=== PATIENT | male | born 1965 | race Caucasian/White ===

== ENCOUNTER 2021-07-31 18:40 | Observation (INO) ==
[2021-07-31] MEDS ORDERED: SODIUM CHLORIDE 0.9% 1000ML 1,000 ML IV ONE (19:00)
[2021-07-31 19:30] LABS: Basophils # (auto) 0.05 K/uL (0-0.2); Basophils % (auto) 0.5 %; Eosinophils # (auto) 0.29 K/uL (0-0.5); Eosinophils % (auto) 2.8 %; Hematocrit (blood only) 43.2 % (42-52); Hemoglobin 14.8 g/dL (14.0-18.0); Immature Granulocytes # (auto) 0.01 K/uL (0.00-0.02); Immature Granulocytes % (auto) 0.1 %; Lymphocytes # (auto) 2.08 K/uL (1.2-3.4); Lymphocytes % (auto) 20.2 %; Mean Corpuscular Hemoglobin 29.3 pg (25-34); Mean Corpuscular Hgb Conc 34.3 g/dL (32-36); Mean Corpuscular Volume 85.5 fL (80-100); Mean Platelet Volume 9.9 fL (7.4-10.4); Monocytes # (auto) 0.68 K/uL (0.11-0.59); Monocytes % (auto) 6.6 %; Neutrophils % (auto) 69.8 %; Platelet Count 273 K/uL (130-400); RDW Coefficient of Variation 13.4 % (11.5-14.5); RDW Standard Deviation 42.1 fL (36.4-46.3); Red Blood Count 5.05 M/uL (4.7-6.1); White Blood Count 10.31 K/uL (4.8-10.8)
[2021-07-31 19:37] LABS: iSTAT Creatinine 0.8 mg/dl (0.6-1.3); iSTAT Hemoglobin 14.3 g/dl (14.0-18.0); iSTAT Ionized Calcium 1.19 mmol/l (1.12-1.32); iSTAT Potassium 3.7 mmol/L (3.3-5.0)
[2021-07-31 19:55] LABS: Alanine Aminotransferase 9 U/L (7-52); Albumin Level 4.3 gm/dl (3.4-5.0); Alkaline Phosphatase 78 U/L (34-104); Anion Gap 9 (3-11); Aspartate Aminotransferase 11 U/L (13-39); BUN Creatinine Ratio 13.3 (10-20); Bilirubin,Total 0.3 mg/dl (0.2-1.0); Blood Urea Nitrogen 11 mg/dl (6-23); Carbon Dioxide 26 mmol/L (21-32); Chloride 105 mmol/L (98-107); Creatinine Clr Calc Pharmacy 103.8 ml/min; Est GFR (African American) 114.8 ml/min; Est GFR (Non-African American) 99.1 ml/min; Globulin 2.2 gm/dl (2.5-4.0); Glucose 151 mg/dl (70-99(Fasting)); Lipase 66 U/L (11-82); Potassium 3.7 mmol/L (3.5-5.1); Sodium 140 mmol/L (136-145); Total Protein 6.5 gm/dl (6.0-8.3); Troponin I < 0.03 ng/ml (0-0.04)
--- NOTE | 2021-07-31 20:22 | Emergency Department Note ---
Impression & Plan Vasculitis, Acute foot pain, Hyperglycemia, Foot pain ED Provider Note NAME: DARSHAN DU AGE: 56 SEX: M : 1965 ARRIVES VIA: Walk-In INFORMANT: Patient ED PROVIDER(S): Francis Smith DO CHIEF COMPLAINT: leg pain HPI: Patient is a 56-year-old male who presents to the ER for toe pain as well as discoloration. This has been going on since May. Patient initially notes that he had a wound on his left third toe back in mid May. This has progressively gotten worse. Now he notes he is having the same thing on his left first toe as well as his right second toe. He notes initially starts out as purpleish discoloration and will becomes black and slightly necrotic. He denies any headache or change in vision. No chest pain or shortness of breath. No nausea, vomiting or diarrhea. No dysuria, urgency, or frequency. No other exacerbating or remitting factors. No IV drug use. ROS: See above HPI for pertinent positives & negatives. A total of 10 systems reviewed and were otherwise negative. PAST MEDICAL HISTORY:See Below PAST SURGICAL HISTORY:See Below FAMILY HISTORY:See Below SOCIAL HISTORY:See Below HOME MEDICATIONS:See Below ALLERGIES:See Below VITALS:See Below PHYSICAL EXAMINATION: GENERAL: Sitting up in bed, alert, well appearing, well nourished, no distress, non-toxic EYE EXAM: normal conjunctiva. PERRL and EOM's grossly intact. OROPHARYNX: no exudate, no erythema, lips, buccal mucosa, and tongue normal and mucous membranes are moist NECK: supple, no nuchal rigidity, no adenopathy, non-tender LUNGS: Clear to auscultation. Normal chest wall mechanics HEART: no murmurs, S1 normal and S2 normal ABDOMEN: abdomen soft, non-tender, normo-active bowel sounds, no masses, no rebound or guarding. UPPER EXTREMITIES: upper extremities are grossly normal. LOWER EXTREMITIES: Left third digit with discoloration on the tip of the toe which appears to be necrotic in combination with the left first digit with dark discoloration on the medial aspect of the toe. Right second digit with dark purple discoloration of the distal aspect of the toe. DPs are 2 out of 4. Gross sensation is intact. NEURO EXAM: Normal sensorium, cranial nerves II-XII grossly intact, normal speech, no gross weakness of arms, no gross weakness of legs. MEDICAL DECISION MAKING: Patient is a 56-year-old male who presents the ER for dark discoloration of his bilateral toes. IV was established blood work was obtained. Labs show no significant leukocytosis or anemia. BMP along with LFTs bilirubin and lipase were remarkable for slightly elevated glucose. Lipase normal. Covid was negative. CT angio of the abdomen pelvis with runoff of the bilateral legs was negative. On exam he has what appears to be skin breakdown and questionable necrosis of 3 separate digits is bilaterally. He does not have any risk factors for embolic disease however this was considered in I did perform the angio for this reason. Question if this is a small vessel vasculitis. Does not appear to be consistent with trauma. Patient was updated bedside. Discussed with Dr. Meeks for further evaluation. Triage Nursing notes reviewed. Limited review of prior medical records performed Vital Signs: reviewed and remarkable for HTN and tachy Differential diagnosis: DVT, musculoskeletal, infection, joint effusion, trauma, lymphedema, idiopathic, CHF, as well as other pathologies. ER treatment provided: See below Diagnostics interpreted by me: ECG: none Cardiac Monitoring: An order was placed for continuous cardiac monitoring. The monitor shows a rate of 92 with sinus rhythm. Laboratory studies: As stated above and show below. Imaging studies: CT angio abdomen pelvis with runoff as described above Consultation(s): This with Dr. Meeks for further evaluation Procedures: none Critical Care: None Past Med/Surg History Social History Smoking Status: Never smoker Second Hand Exposure: No; Do You Dip or Chew Tobacco: Yes; Tobacco Cessation Education Requested by Patient: No Hx Alcohol Use: No Hx Substance Use: Yes Last Used Substance: Unknown Preferred Language: French Communication Ability: Effective Chain Offbearer Required: No Beliefs That Will Affect Care: None Current Living Situation: Spouse Other Information That Helps Us Care for You: No Feels Safe at Home: Yes Safety Concerns: Feels Safe At This Time Assistive Devices: None Allergies Allergies Allergy/AdvReac Type Severity Reaction Status Date / Time No Known Allergies Allergy Verified 07/31/21 19:16 Home Meds Home Medications Medication Instructions Recorded Confirmed atorvastatin 40 mg tablet 40 mg PO HS 07/31/21 07/31/21 celecoxib 200 mg capsule 200 mg PO DAILY 07/31/21 07/31/21 Results & Data (ED) Vital Signs Vital Signs - 24 hr 07/31/21 18:42 07/31/21 19:30 07/31/21 21:43 Temperature 36.7 C Temperature Source Temporal Artery Scan Pulse Rate 97 H 100 H Pulse Rate [Right Finger] 101 H 82 Pulse Rhythm Regular Pulse Rhythm [Right Finger] Regular Pulse Strength [Right Finger] Normal Respiratory Rate 19 19 19 Respiratory Effort / Characteristics Non-Labored Spontaneous Respiratory Depth Normal Blood Pressure 154/93 H Blood Pressure [Right Arm] 144/100 H Blood Pressure Mean 113 Blood Pressure Mean [Right Arm] 114 Pulse Oximetry 99 98 98 Oxygen Delivery Method Room Air Room Air Room Air Sepsis Recent Fever Within 48 Hours No Sepsis New/Unexplained Change in Mental Status N/A Sepsis Action Taken by Nursing No Action Required Laboratory Data Result diagrams: 07/31/21 19:20 07/31/21 19:20 Lab Results 07/31/21 07/31/21 07/31/21 Range/Units 19:20 19:20 19:24 WBC 10.31 (4.8-10.8) K/uL RBC 5.05 (4.7-6.1) M/uL Hgb 14.8 (14.0-18.0) g/dL POC Hgb 14.3 (14.0-18.0) g/dl Hct 43.2 (42-52) % POC Hct 42 (42-52) % MCV 85.5 (80-100) fL MCH 29.3 (25-34) pg MCHC 34.3 (32-36) g/dL RDW Std Deviation 42.1 (36.4-46.3) fL RDW Coeff of Deniz 13.4 (11.5-14.5) % Plt Count 273 (130-400) K/uL MPV 9.9 (7.4-10.4) fL Immature Gran % (Auto) 0.1 % Neut % (Auto) 69.8 % Lymph % (Auto) 20.2 % Canadian % (Auto) 6.6 % Eos % (Auto) 2.8 % Baso % (Auto) 0.5 % Neut # (Auto) 7.20 H (1.4-6.5) K/uL Lymph # (Auto) 2.08 (1.2-3.4) K/uL Canadian # (Auto) 0.68 H (0.11-0.59) K/uL Eos # (Auto) 0.29 (0-0.5) K/uL Baso # (Auto) 0.05 (0-0.2) K/uL Immature Gran # (Auto) 0.01 (0.00-0.02) K/uL POC Sodium 142 (135-144) mmol/L Sodium 140 (136-145) mmol/L POC Potassium 3.7 (3.3-5.0) mmol/L Potassium 3.7 (3.5-5.1) mmol/L POC Chloride 103 (101-112) mmol/L Chloride 105 (98-107) mmol/L Carbon Dioxide 26 (21-32) mmol/L POC Total CO2 27 (24-31) mmol/L Anion Gap 9 (3-11) POC Anion Gap 17.0 (16-25) mmol/L POC BUN 11 (7-18) mg/dl BUN 11 (6-23) mg/dl Creatinine 0.83 (0.6-1.4) mg/dl POC Creatinine 0.8 (0.6-1.3) mg/dl Est Cr Clr Drug Dosing 103.8 ml/min Est GFR ( Amer) 114.8 ml/min Est GFR (Non-Af Amer) 99.1 ml/min BUN/Creatinine Ratio 13.3 (10-20) Glucose 151 H (70-99(Fasting)) mg/dl POC Glucose (other) 156 H (70-99) mg/dl Calcium 9.0 (8.5-10.1) mg/dl POC Ioniz Calcium Baldomero 1.19 (1.12-1.32) mmol/l Total Bilirubin 0.3 (0.2-1.0) mg/dl AST 11 L (13-39) U/L ALT 9 (7-52) U/L Alkaline Phosphatase 78 (34-104) U/L Troponin I < 0.03 (0-0.04) ng/ml Total Protein 6.5 (6.0-8.3) gm/dl Albumin 4.3 (3.4-5.0) gm/dl Globulin 2.2 L (2.5-4.0) gm/dl Albumin/Globulin Ratio 2.0 (0.9-2) Lipase 66 (11-82) U/L SARS-CoV-2, RNA, NAAT (NEGATIVE) 04/03/22 Range/Units 21:10 WBC (4.8-10.8) K/uL RBC (4.7-6.1) M/uL Hgb (14.0-18.0) g/dL POC Hgb (14.0-18.0) g/dl Hct (42-52) % POC Hct (42-52) % MCV (80-100) fL MCH (25-34) pg MCHC (32-36) g/dL RDW Std Deviation (36.4-46.3) fL RDW Coeff of Deniz (11.5-14.5) % Plt Count (130-400) K/uL MPV (7.4-10.4) fL Immature Gran % (Auto) % Neut % (Auto) % Lymph % (Auto) % Canadian % (Auto) % Eos % (Auto) % Baso % (Auto) % Neut # (Auto) (1.4-6.5) K/uL Lymph # (Auto) (1.2-3.4) K/uL Canadian # (Auto) (0.11-0.59) K/uL Eos # (Auto) (0-0.5) K/uL Baso # (Auto) (0-0.2) K/uL Immature Gran # (Auto) (0.00-0.02) K/uL POC Sodium (135-144) mmol/L Sodium (136-145) mmol/L POC Potassium (3.3-5.0) mmol/L Potassium (3.5-5.1) mmol/L POC Chloride (101-112) mmol/L Chloride (98-107) mmol/L Carbon Dioxide (21-32) mmol/L POC Total CO2 (24-31) mmol/L Anion Gap (3-11) POC Anion Gap (16-25) mmol/L POC BUN (7-18) mg/dl BUN (6-23) mg/dl Creatinine (0.6-1.4) mg/dl POC Creatinine (0.6-1.3) mg/dl Est Cr Clr Drug Dosing ml/min Est GFR ( Amer) ml/min Est GFR (Non-Af Amer) ml/min BUN/Creatinine Ratio (10-20) Glucose (70-99(Fasting)) mg/dl POC Glucose (other) (70-99) mg/dl Calcium (8.5-10.1) mg/dl POC Ioniz Calcium Baldomero (1.12-1.32) mmol/l Total Bilirubin (0.2-1.0) mg/dl AST (13-39) U/L ALT (7-52) U/L Alkaline Phosphatase (34-104) U/L Troponin I (0-0.04) ng/ml Total Protein (6.0-8.3) gm/dl Albumin (3.4-5.0) gm/dl Globulin (2.5-4.0) gm/dl Albumin/Globulin Ratio (0.9-2) Lipase (11-82) U/L SARS-CoV-2, RNA, NAAT NEGATIVE (NEGATIVE) Administered Medications Discontinued Medications Sodium Chloride (Nss 1000ml) 1,000 mls @ 999 mls/hr IV .Q1H1M ONE Stop: 07/31/21 20:00 Last Infusion: 07/31/21 21:14 Dose: 0 mls/hr Documented by: [id number] Admin: 07/31/21 19:32 Dose: 999 mls/hr Documented by: [id number] Ioversol (Optiray 320 125ml) 120 ml IV ONCE ONE Stop: 07/31/21 20:31 Last Admin: 07/31/21 20:30 Dose: 120 ml Documented by: [id number] Discharge Plan Visit Data Chief Complaint: Toe Injury/Pain Stated Complaint: COLD FEET, BOTH FEET TOES TURNING BLACK AND BLUE ED Provider: Francis Smith Discharge Problem: Vasculitis, Acute foot pain, Hyperglycemia, Foot pain Forms Stand Alone Forms: My [employer] Prescriptions Prescriptions: No Action celecoxib 200 mg capsule 200 mg PO DAILY RF: 0 atorvastatin 40 mg tablet 40 mg PO HS RF: 0 Referrals Referrals: Demond Loyola MD [Primary Care Provider] - Discharge Problem: Acute foot pain Qualifiers: Laterality: unspecified laterality Qualified Code(s): M79.673 - Pain in unspecified foot
[2021-07-31] MEDS ORDERED: OPTIRAY 320 125ml IV ONE (20:30)
[2021-07-31] MEDS ORDERED: POLYETHYLENE (MIRALAX) 17 GM PACK PO PRN (22:50)
[2021-07-31] MEDS ORDERED: ACETAMINOPHEN 325 MG TAB PO PRN (22:50)
[2021-07-31] MEDS: AMOXICILLIN/CLAVULANATE 875 MG TAB PO SCH (23:09)
[2021-07-31 23:30] LABS: Appearance Urine Clear (Clear); Bilirubin Urine Negative (Negative); Blood Urine Negative (Negative); Color Urine Yellow; Glucose Urine UA Negative (Negative); Ketones Urine Negative (Negative); Leukocyte Esterase Urine Negative (Negative); Nitrite Urine Negative (Negative); Protein Urine Negative (Negative); Specific Gravity Urine > 1.045 (1.000-1.030); Urobilinogen Urine Negative (Negative)
--- NOTE | 2021-07-31 23:58 | History and Physical Report ---
CHIEF COMPLAINT: Ulcers in toes. HISTORY OF PRESENT ILLNESS: A 56-year-old male with past medical history significant for hyperlipidemia, comes with ulcers in his toes. First he noticed some purplish discoloration and has some ulcers in his left distal part of 3rd toe and first toe. He thought he might have banged something and went to urgent care, given 10 days of antibiotics. It seemed to help a little bit and then again it progressively got worsened and getting worse, with black discoloration.Yesterday also again he has noticed purple discoloration of his right distal 2nd toe. Which prompted him to come to the ER today. He says, about 2 years ago, he was in [place] when he had severe vertigo, he went to doctor and was treated with some medication and it lasted for 3-4 months. It resolved, but once a while still feels a little bit dizzy. Since then he lost appetite and he lost about 30 pounds. Denies any other medical problems. Denies any headache. He has some blurred visions, no runny nose, no sore throat, no cough, no headache, no difficulty swallowing. No chest pain, no shortness of breath, no nausea, no vomiting, no abdominal pain. He has chronic diarrhea, goes 3-4 times a day, but denies any blood in the stools. Normal bladder movements. No blood in the urine. No swelling in the legs. Currently, resting comfortably and hemodynamically stable. ALLERGIES: No known drug allergies. PAST MEDICAL HISTORY: As mentioned above. PAST SURGICAL HISTORY: No surgical history on file. MEDICATIONS: The patient is on atorvastatin 40 mg p.o. at bedtime, celecoxib 200 mg p.o. daily. FAMILY HISTORY: Significant for father had COPD. SOCIAL HISTORY: . Former smoker. Alcohol occasionally. Medical marijuana as per the Epic. REVIEW OF SYMPTOMS: As per HPI. Rest of review of symptoms is negative. PHYSICAL EXAMINATION: GENERAL: The patient is of moderate build, not in acute distress. VITAL SIGNS: Temperature 36.7, pulse 82, respiratory rate 19, blood pressure 144/100, and oxygen 98% on room air. HEENT: Pupils equal, round and reactive to light. Oral mucosa moist. NECK: No JVD or neck masses. CARDIOVASCULAR: S1 and. S2 heard. Regular rate and rhythm. No murmur, no gallop. RESPIRATORY: Normal AP diameter. No accessory muscle use. No wheezing, no crackles. ABDOMEN: Soft, bowel sounds present, nontender, no distention. CENTRAL NERVOUS SYSTEM: Cranial nerves II-XII grossly intact, nonfocal. EXTREMITIES: Blackish discoloration of the distal left third toe and also on the left first toe. Purple discoloration on the distal part of the right second toe. No edema seen. LABORATORY DATA: WBC 10, hemoglobin 14.8, hematocrit 43.2, platelets 273. Sodium 140, potassium 3.7, chloride 105, CO2 of 26, BUN 11, creatinine 0.8, serum glucose 151, calcium 9. Total bilirubin 0.3, AST 11, ALT 9, alkaline phosphatase 70. Troponin I less than 0.03. Lipase 66. SARS-CoV-2 rapid test negative. IMAGING DATA: CTA abdomen and pelvis with lower extremity runoffs, preliminary report unremarkable, ASSESSMENT AND PLAN: 1. This 56-year-old male presents with bilateral lower toes ulcerations. On the left third and first toes, going onsince May, slightly getting worsened and purplish discoloration of the right second toe over the distal aspect started yesterday. CTA of abdomen and pelvis with contrast and lower extremity runoff seems to be okay. Questionable vasculitis, question of embolic phenomenon. We will keep him in the hospital. We will order echo.Possible underlying infection , we will put empirically on Augmentin. Will consult rheumatology in the a.m. Monitor in the hospital. 2. Hyperlipidemia, on statin. 3. Deep venous thrombosis prophylaxis: Lovenox. DISPOSITION: Observe in medical floor. PT/OT prior to discharge. Social service to help with discharge planning. Level 1 full code. Job ID: [id number] MTDD
[2021-08-01 05:52] LABS: Basophils # (auto) 0.06 K/uL (0-0.2); Basophils % (auto) 0.8 %; Eosinophils # (auto) 0.36 K/uL (0-0.5); Eosinophils % (auto) 4.7 %; Hematocrit (blood only) 42.7 % (42-52); Hemoglobin 14.4 g/dL (14.0-18.0); Immature Granulocytes # (auto) 0.01 K/uL (0.00-0.02); Immature Granulocytes % (auto) 0.1 %; Lymphocytes # (auto) 2.39 K/uL (1.2-3.4); Lymphocytes % (auto) 31.3 %; Mean Corpuscular Hemoglobin 29.2 pg (25-34); Mean Corpuscular Hgb Conc 33.7 g/dL (32-36); Mean Corpuscular Volume 86.6 fL (80-100); Monocytes # (auto) 0.64 K/uL (0.11-0.59); Monocytes % (auto) 8.4 %; Neutrophils # (auto) 4.18 K/uL (1.4-6.5); Neutrophils % (auto) 54.7 %; Platelet Count 263 K/uL (130-400); RDW Coefficient of Variation 13.5 % (11.5-14.5); RDW Standard Deviation 42.9 fL (36.4-46.3); Red Blood Count 4.93 M/uL (4.7-6.1); White Blood Count 7.64 K/uL (4.8-10.8)
[2021-08-01 06:20] LABS: Anion Gap 6 (3-11); BUN Creatinine Ratio 11.4 (10-20); Blood Urea Nitrogen 9 mg/dl (6-23); C Reactive Protein < 0.50 mg/dl (0-0.5); Calcium 8.7 mg/dl (8.5-10.1); Carbon Dioxide 28 mmol/L (21-32); Chloride 107 mmol/L (98-107); Creatinine Clr Calc Pharmacy 109.1 ml/min; Est GFR (African American) 117.2 ml/min; Est GFR (Non-African American) 101.1 ml/min; Glucose 84 mg/dl (70-99(Fasting)); Magnesium 2.2 mg/dl (1.7-2.4); Potassium 3.6 mmol/L (3.5-5.1); Sodium 141 mmol/L (136-145)
[2021-08-01] MEDS: AMOXICILLIN/CLAVULANATE 875 MG TAB PO SCH ×2 (08:48→17:08)
[2021-08-01] MEDS ORDERED: ENOXAPARIN INJ 40 MG/0.4 ML SYR SQ SCH (09:00)
[2021-08-01] MEDS ORDERED: ADVANCED PROBIOTIC 1250 MG CAPSULE PO SCH (09:00)
--- NOTE | 2021-08-01 09:19 | CT Scan Report ---
CT ang AA magnolia dailey HISTORY: Lower extremity color change. Blue feet. Assess for arterial disease. TECHNIQUE: Multiaxial CT images of the abdomen, pelvis, bilateral lower extremities were performed fo llowing the intravenous ministration of contrast to evaluate the major arterial structures. Maximum i ntensity projection images were also obtained. COMPARISON STUDY: None. FINDINGS: Bilateral L5 spondylolysis with associated grade 1 anterolisthesis. No fractures within the visualized osseous structures. The lung bases are clear. No pneumoperitoneum. No pneumatosis. Multip le small gallstones. No gallbladder wall thickening. The liver, spleen, adrenal glands, and pancreas are unremarkable. There is a 2 cm diverticulum at the second portion of the duodenum. No hydronephros is. A few bilateral renal hypodense lesions with the largest on the right measuring 2.9 cm. These lik timmy represent cysts. There is also an exophytic intermediate density lesion within the right kidney o n image 92 which measures 1.8 cm. This is incompletely characters on this single phase study but favo rs a hyperdense cyst. No retroperitoneal lymphadenopathy. Tiny fat-containing umbilical hernia. No pe lvic free fluid. Mild bladder wall thickening. This may be due to underdistention or the enlarged pro state gland. Small right perirectal abscess/phlegmon measuring 2.3 x 1.3 cm. This is best seen on wu ge [id number]. Moderate well-formed stool seen throughout the colon. No bowel wall thickening or obstruction . Normal appendix. Mild to moderate calcified plaque within the abdominal aorta and iliac arteries. Mildly ectatic abdom inal aorta measuring up to 2.3 cm in diameter. No evidence for an abdominal aortic aneurysm or dissec tion. There are 2 right renal arteries and 2 left renal arteries which appear widely patent. The andrew ac artery, superior mesenteric artery, inferior mesenteric artery are also patent. The bilateral reyna c arteries, femoral arteries, popliteal arteries, anterior tibial, posterior tibial, and peroneal art eries are widely patent. No high-grade stenosis or occlusion identified within the bilateral lower ex tremity arterial systems. IMPRESSION: 1. No significant stenosis, occlusion, aneurysm, or dissection within the abdominal aorta, iliac josue too, or bilateral lower extremity arteries. 2. Cholelithiasis. 3. No bowel wall thickening or obstruction. 4. Small right perirectal abscess/phlegmon measuring 2.3 x 1.3 cm. This may be a resolving or chronic abscess given the appearance. 5. Additional findings as described above. ACT 112: Negative or not required by law. Electronically signed by: Wild Langley M.D. 08/01/2021 9:16 AM
--- NOTE | 2021-08-01 17:34 | Discharge Summary ---
Date of Service August 01, 2021 Admission HPI Per Admitting Provider CHIEF COMPLAINT: Ulcers in toes. HISTORY OF PRESENT ILLNESS: A 56-year-old male with past medical history significant for hyperlipidemia, comes with ulcers in his toes. First he noticed some purplish discoloration and has some ulcers in his left distal part of 3rd toe and first toe. He thought he might have banged something and went to urgent care, given 10 days of antibiotics. It seemed to help a little bit and then again it progressively got worsened and getting worse, with black discoloration.Yesterday also again he has noticed purple discoloration of his right distal 2nd toe. Which prompted him to come to the ER today. He says, about 2 years ago, he was in [place] when he had severe vertigo, he went to doctor and was treated with some medication and it lasted for 3-4 months. It resolved, but once a while still feels a little bit dizzy. Since then he lost appetite and he lost about 30 pounds. Denies any other medical problems. Denies any headache. He has some blurred visions, no runny nose, no sore throat, no cough, no headache, no difficulty swallowing. No chest pain, no shortness of breath, no nausea, no vomiting, no abdominal pain. He has chronic diarrhea, goes 3-4 times a day, but denies any blood in the stools. Normal bladder movements. No blood in the urine. No swelling in the legs. Currently, resting comfortably and hemodynamically stable. Admission Exam Per Admitting Provider GENERAL: The patient is of moderate build, not in acute distress. VITAL SIGNS: Temperature 36.7, pulse 82, respiratory rate 19, blood pressure 144/100, and oxygen 98% on room air. HEENT: Pupils equal, round and reactive to light. Oral mucosa moist. NECK: No JVD or neck masses. CARDIOVASCULAR: S1 and. S2 heard. Regular rate and rhythm. No murmur, no gallop. RESPIRATORY: Normal AP diameter. No accessory muscle use. No wheezing, no crackles. ABDOMEN: Soft, bowel sounds present, nontender, no distention. CENTRAL NERVOUS SYSTEM: Cranial nerves II-XII grossly intact, nonfocal. EXTREMITIES: Blackish discoloration of the distal left third toe and also on the left first toe. Purple discoloration on the distal part of the right second toe. No edema seen. Principal Diagnosis Toes discoloration Dyslipidemia Discharge Exam GENERAL: The patient is of moderate build, not in acute distress. VITAL SIGNS: Temperature 36.7, pulse 82, respiratory rate 19, blood pressure 144/100, and oxygen 98% on room air. HEENT: Pupils equal, round and reactive to light. Oral mucosa moist. NECK: No JVD or neck masses. CARDIOVASCULAR: S1 and. S2 heard. Regular rate and rhythm. No murmur, no gallop. RESPIRATORY: Normal AP diameter. No accessory muscle use. No wheezing, no crackles. ABDOMEN: Soft, bowel sounds present, nontender, no distention. CENTRAL NERVOUS SYSTEM: Cranial nerves II-XII grossly intact, nonfocal. EXTREMITIES: Blackish discoloration of the distal left third toe and also on the left first toe. Purple discoloration on the distal part of the right second toe. No edema seen. Discharge Data Allergies Allergy/AdvReac Type Severity Reaction Status Date / Time No Known Allergies Allergy Verified 07/31/21 19:16 Consultations 07/31/21 20:46 ED Decision to Admit Stat 08/01/21 08:00 Consult Rheumatology Routine Ordered Studies 07/31/21 20:07 CT ang AA runof w inc wo ifdon Stat CT ang AA runof w inc wo ifdon HISTORY: Lower extremity color change. Blue feet. Assess for arterial disease. TECHNIQUE: Multiaxial CT images of the abdomen, pelvis, bilateral lower extremities were performed following the intravenous ministration of contrast to evaluate the major arterial structures. Maximum intensity projection images were also obtained. COMPARISON STUDY: None. FINDINGS: Bilateral L5 spondylolysis with associated grade 1 anterolisthesis. No fractures within the visualized osseous structures. The lung bases are clear. No pneumoperitoneum. No pneumatosis. Multiple small gallstones. No gallbladder wall thickening. The liver, spleen, adrenal glands, and pancreas are unremarkable. There is a 2 cm diverticulum at the second portion of the duodenum. No hydronephrosis. A few bilateral renal hypodense lesions with the largest on the right measuring 2.9 cm. These likely represent cysts. There is also an exophytic intermediate density lesion within the right kidney on image 92 which measures 1.8 cm. This is incompletely characters on this single phase study but favors a hyperdense cyst. No retroperitoneal lymphadenopathy. Tiny fat-containing umbilical hernia. No pelvic free fluid. Mild bladder wall thickening. This may be due to underdistention or the enlarged prostate gland. Small right perirectal abscess/phlegmon measuring 2.3 x 1.3 cm. This is best seen on image 437. Moderate well-formed stool seen throughout the colon. No bowel wall thickening or obstruction. Normal appendix. Mild to moderate calcified plaque within the abdominal aorta and iliac arteries. Mildly ectatic abdominal aorta measuring up to 2.3 cm in diameter. No evidence for an abdominal aortic aneurysm or dissection. There are 2 right renal arteries and 2 left renal arteries which appear widely patent. The celiac artery, superior mesenteric artery, inferior mesenteric artery are also patent. The bilateral iliac arteries, femoral arteries, popliteal arteries, anterior tibial, posterior tibial, and peroneal arteries are widely patent. No high-grade stenosis or occlusion identified within the bilateral lower extremity arterial systems. IMPRESSION: 1. No significant stenosis, occlusion, aneurysm, or dissection within the abdominal aorta, iliac arteries, or bilateral lower extremity arteries. 2. Cholelithiasis. 3. No bowel wall thickening or obstruction. 4. Small right perirectal abscess/phlegmon measuring 2.3 x 1.3 cm. This may be a resolving or chronic abscess given the appearance. 5. Additional findings as described above. ACT 112: Negative or not required by law. Electronically signed by: Wild Langley M.D. 08/01/2021 9:16 AM Dictated:08/01/21905 Transcribed: 08/01/21905 Hospital Course (1) Discoloration of skin of toe: This 56-year-old male presents with bilateral lower toes ulcerations. Need to r/o Buerger's disease (vasculitis) Completed a course of 14 days abx outpatient Currently on Augmentin, will d/c since there is no evidence of infection CTA of abdomen and pelvis with contrast and lower extremity runoff showed no significant stenosis, occlusion, aneurysm, or dissection within the abdominal aorta, iliac arteries, or bilateral lower extremity arteries. case discussed with Regional Sales Director Dr. Downey that recommended the treatment for Buerger's disease is to quit smoking Dr. Downey is willing to see patient outpatient since pt does not want to stay for another tomorrow Pt was advised if discoloration worsening to seek urgent medical attention Will discharge on aspirin 81mg daily Consider vascular consult outpatient if no improvement Questionable ight Perirectal abscess/phlegmon Pt denies any any symptoms. No Leukocytosis and Afebrile CT adb/pelvis showed small right perirectal abscess/phlegmon measuring 2.3 x 1.3 cm. This may be a resolving or chronic abscess given the appearance. Continue monitor Hyperlipidemia, on statin. Deep venous thrombosis prophylaxis: Lovenox. DISPOSITION: Discharge home today since pt is very anxious to go home today Total Time Total Time Spent Total Time Spent (In Minutes): 35 minutes Discharge Plan Discharge Items Patient Disposition: Home - Self-Care Reason For Visit: TOE PAIN Discharge Diagnosis: Toes discoloration Dyslopidemia Activity: Resume your previous activity Non-emergency contact: Primary Care Provider Call non-emergency contact if: you have any medication questions, your symptoms worsen and your rectal temperature is above 100.4 Follow-up/Referrals: John Downey MD [Physician] - 09/02/21 9:00 am (Date & Time 09/02/2021 9:00 AM Provider John Downey MD Department Rheumatology [facility] ) Demond Loyola MD [Primary Care Provider] - 08/03/21 11:00 am (Date & Time 08/03/2021 11:00 AM Provider Irene Hazel MD Department [facility] ) Diet: Heart Healthy Addtl Attending Provider Instructions: Follow up with your primary care provider Dr. Hazel on 08/03/2021 @ 11:[address] [facility] Follow up with parking meter servicer to evaluate for possible Buerger disease Counseling on tobacco cessation Consider outpatient vascular surgery evaluation if no improvement Seek urgent medical attention if toes worsening Pending Studies at Discharge: No Stand-Alone Forms: [employer] Smoking Cessation Medications and DC Order Prescriptions: New aspirin 81 mg tablet,delayed release (DR/EC) 81 mg PO DAILY Qty: 30 RF: 0 Continued atorvastatin 40 mg tablet 40 mg PO HS RF: 0 Changed celecoxib 200 mg capsule 200 mg PO DAILY PRN (Reason: pain) Qty: 0 RF: 0 Discharge Orders: Discharge Order (Routine); Ordered 08/01/21 Ordered By: Martha Meehan Admission Data Admit Date/Time: 07/31/21 21:48 Attending Provider: Martha Meehan Admit Provider: Adam Duenas Primary Care Provider: Demond Loyola Other Providers: Adam Duenas ; John Downey ; Louisa Michaud Other Interventions: Discharge Summary Assessment (RN) Last Done: 08/01/21 18:00
[2021-08-01] MEDS ORDERED: ATORVASTATIN 40 MG TAB PO SCH (21:00)
== END 2021-08-01 18:15 | disposition home or self-care (01) ==
LOC: ED 18:40 → 3E 18:40 → SUATTDRO 21:48 → 3E 22:36

== ENCOUNTER 2021-09-20 18:51 | Inpatient (IN) ==
[2021-09-20] MEDS ORDERED: SODIUM CHLORIDE 0.9% 1000ML 1,000 ML IV STA (18:57)
--- NOTE | 2021-09-20 19:12 | Emergency Department Note ---
Impression & Plan Acute lower GI bleeding, Anemia, Colonoscopy causing post-procedural bleeding ED Provider Note NAME: DARSHAN DU AGE: 56 SEX: M : 1965 ARRIVES VIA: Ambulance INFORMANT: Patient, ED PROVIDER(S): Adrian Nava DO CHIEF COMPLAINT: GI bleeding HPI: The patient is a 56-year-old male who presented to the emergency department for rectal bleeding. The patient was seen in our facility recently for different complaints. At that time he was noted to have a possible perirectal mass or phlegmon. He was scheduled for follow-up GI appointment and ultimately had a colonoscopy today. The colonoscopy was done in [place]. The patient had removal of approximately 8 polyps. He is unsure if these were cold snare or cauterization. The patient states he started having rectal bleeding when he got home from [place]. He noticed the rectal bleeding started to worsen and increase. He had 2 syncopal episodes. His significant other called 911. The patient was found to have low blood pressure prior to arrival. He was treated with Zofran for nausea as well as IV fluids. At this time the patient denies having any headache or chest pain. He does complain of generalized weakness. The patient has never had a colonoscopy before. He does not take blood thinners. ROS: See above HPI for pertinent positives & negatives. A total of 10 systems reviewed and were otherwise negative. PAST MEDICAL HISTORY: See Below PAST SURGICAL HISTORY: See Below FAMILY HISTORY: See Below SOCIAL HISTORY: See Below HOME MEDICATIONS: See Below ALLERGIES: See Below VITALS: See Below PHYSICAL EXAMINATION: GENERAL: The patient is awake and alert. The patient is somewhat anxious appearing. EYES: The conjunctivae are clear. The pupils are round and reactive. EARS, NOSE, MOUTH AND THROAT: The nose is without any evidence of any deformity. NECK: The neck is nontender and supple. RESPIRATORY: Normal respiratory effort is noted there is no evidence of wheezing rhonchi or rales CARDIOVASCULAR: Regular rate and rhythm noted there no murmurs rubs or gallops normal S1 normal S2. GASTROINTESTINAL: Abdomen is soft and nondistended. There is no tenderness guarding rigidity. Rectal exam revealed gross blood. MUSCULOSKELETAL/EXTREMITIES: There is no evidence of gross deformity full range of motion is noted in the hips and shoulders. SKIN: Skin is cool and diaphoretic. There is no pedal edema. Skin is pale. NEUROLOGIC: Patient is awake alert and oriented x3 MEDICAL DECISION MAKING: The patient is a 56-year-old male who presented to the emergency department for an evaluation of lower GI bleeding. The patient had a recent colonoscopy. The patient had removal of 8 polyps. He started having heavier bleeding and had multiple syncopal episodes prior to arrival. He was diaphoretic. He was noted to have hypotension prior to arrival. He was treated with IV fluids prior to arrival as well as in the emergency department. He was reevaluated. I discuss ed the patient's laboratory and radiographic studies with him. His abdominal exam is not consistent with an acute surgical abdomen. [facility] have agreed to evaluate the patient in the emergency department for further management and disposition. Triage Nursing notes reviewed. Prior medical records reviewed Vital Signs: reviewed and remarkable for no significant abnormalities Differential diagnosis: Diverticulosis, AVM, coagulopathy, colitis, inflammatory bowel disease, malignancy, Sofia-Schultz tear, esophagitis, peptic ulcer disease, variceal bleed, gastritis, epistaxis, fissure, hemorrhoids, as well as other pathologies. ER treatment provided: See below Diagnostics interpreted by me: ECG: EKG was obtained in the emergency department. My interpretation is normal sinus rhythm at 77 bpm. There is no ectopy. There is no acute ST segment abnormalities noted. No previous tracing was available. Cardiac Monitoring: An order was placed for continuous cardiac monitoring. The monitor shows a rate of 73 bpm with sinus rhythm. Laboratory studies: As stated above and show below. Imaging studies: See below Consultation(s): Discussed this case with Dr. Ward who is [facility] Past Med/Surg History Medical History Acute foot pain Foot pain Hyperglycemia Social History Smoking Status: Former smoker Second Hand Exposure: No; Hx Alcohol Use: Yes Hx Substance Use: No Preferred Language: Malay Communication Ability: Effective Vp Informatics Required: No Beliefs That Will Affect Care: None Current Living Situation: Spouse Other Information That Helps Us Care for You: No Feels Safe at Home: Yes Safety Concerns: Feels Safe At This Time Assistive Devices: None Allergies Allergies Allergy/AdvReac Type Severity Reaction Status Date / Time No Known Allergies Allergy Verified 09/20/21 20:18 Home Meds Home Medications Medication Instructions Recorded Confirmed atorvastatin 40 mg tablet 40 mg PO HS 07/31/21 09/20/21 celecoxib 200 mg capsule 200 mg PO HS 09/20/21 09/20/21 Results & Data (ED) Vital Signs Vital Signs - 24 hr 09/20/21 19:07 09/20/21 19:16 09/20/21 20:02 Pulse Rate - Lying 71 Pulse Rate - Sitting 67 Pulse Rate - Standing 76 Pulse Rate 75 Pulse Rate [Apical] 73 Pulse Rhythm [Apical] Regular Respiratory Rate 16 16 Respiratory Depth Normal Normal Blood Pressure - Lying 103/65 Blood Pressure - Sitting 114/81 Blood Pressure- Standing 117/81 Blood Pressure 112/76 Blood Pressure [Left Arm] 112/75 Blood Pressure Mean 88 Blood Pressure Mean [Left Arm] 87 Pulse Oximetry 95 95 Oxygen Delivery Method Room Air Room Air Sepsis Recent Fever Within 48 Hours No Sepsis New/Unexplained Change in Mental Status No Sepsis Action Taken by Nursing No Action Required Home Medications Current Medication List: was personally reviewed by me Laboratory Data Attestation: I reviewed the patient's lab results. Result diagrams: 09/21/21 05:51 09/21/21 05:51 Lab Results 09/20/21 09/20/21 09/20/21 Range/Units 19:04 19:04 19:04 WBC 10.66 (4.8-10.8) K/uL RBC 4.24 L (4.7-6.1) M/uL Hgb 12.2 L (14.0-18.0) g/dL Hct 36.9 L (42-52) % MCV 87.0 (80-100) fL MCH 28.8 (25-34) pg MCHC 33.1 (32-36) g/dL RDW Std Deviation 43.7 (36.4-46.3) fL RDW Coeff of Deniz 13.7 (11.5-14.5) % Plt Count 221 (130-400) K/uL MPV 10.1 (7.4-10.4) fL Immature Gran % (Auto) 0.2 % Neut % (Auto) 68.8 % Lymph % (Auto) 22.2 % Cache % (Auto) 6.4 % Eos % (Auto) 2.0 % Baso % (Auto) 0.4 % Neut # (Auto) 7.34 H (1.4-6.5) K/uL Lymph # (Auto) 2.37 (1.2-3.4) K/uL Cache # (Auto) 0.68 H (0.11-0.59) K/uL Eos # (Auto) 0.21 (0-0.5) K/uL Baso # (Auto) 0.04 (0-0.2) K/uL Immature Gran # (Auto) 0.02 (0.00-0.02) K/uL Echinocytes 1+ PT 11.4 (9.0-12.0) Seconds INR 1.1 (0.9-1.1) APTT 24.0 (21.0-31.0) Seconds PTT Ratio 0.9 Sodium 143 (136-145) mmol/L Potassium 3.6 (3.5-5.1) mmol/L Chloride 109 H (98-107) mmol/L Carbon Dioxide 28 (21-32) mmol/L Anion Gap 6 (3-11) BUN 13 (6-23) mg/dl Creatinine 1.02 (0.6-1.4) mg/dl Est Cr Clr Drug Dosing Not Reportable Est GFR ( Amer) 95.5 ml/min Est GFR (Non-Af Amer) 82.4 ml/min BUN/Creatinine Ratio 12.7 (10-20) Glucose 94 (70-99(Fasting)) mg/dl Calcium 8.2 L (8.5-10.1) mg/dl Magnesium (1.7-2.4) mg/dl Total Bilirubin 0.3 (0.2-1.0) mg/dl AST 10 L (13-39) U/L ALT 12 (7-52) U/L Alkaline Phosphatase 58 (34-104) U/L Troponin I High Sens 4.3 (0-20) pg/ml Total Protein 5.5 L (6.0-8.3) gm/dl Albumin 3.6 (3.4-5.0) gm/dl Globulin 1.9 L (2.5-4.0) gm/dl Albumin/Globulin Ratio 1.9 (0.9-2) Lipase 33 (11-82) U/L SARS-CoV-2, RNA, NAAT (NEGATIVE) Blood Type Antibody Screen 09/20/21 09/20/21 09/20/21 Range/Units 19:04 19:19 19:53 WBC (4.8-10.8) K/uL RBC (4.7-6.1) M/uL Hgb (14.0-18.0) g/dL Hct (42-52) % MCV (80-100) fL MCH (25-34) pg MCHC (32-36) g/dL RDW Std Deviation (36.4-46.3) fL RDW Coeff of Deniz (11.5-14.5) % Plt Count (130-400) K/uL MPV (7.4-10.4) fL Immature Gran % (Auto) % Neut % (Auto) % Lymph % (Auto) % Cache % (Auto) % Eos % (Auto) % Baso % (Auto) % Neut # (Auto) (1.4-6.5) K/uL Lymph # (Auto) (1.2-3.4) K/uL Cache # (Auto) (0.11-0.59) K/uL Eos # (Auto) (0-0.5) K/uL Baso # (Auto) (0-0.2) K/uL Immature Gran # (Auto) (0.00-0.02) K/uL Echinocytes PT (9.0-12.0) Seconds INR (0.9-1.1) APTT (21.0-31.0) Seconds PTT Ratio Sodium (136-145) mmol/L Potassium (3.5-5.1) mmol/L Chloride (98-107) mmol/L Carbon Dioxide (21-32) mmol/L Anion Gap (3-11) BUN (6-23) mg/dl Creatinine (0.6-1.4) mg/dl Est Cr Clr Drug Dosing Est GFR ( Amer) ml/min Est GFR (Non-Af Amer) ml/min BUN/Creatinine Ratio (10-20) Glucose (70-99(Fasting)) mg/dl Calcium (8.5-10.1) mg/dl Magnesium 2.0 (1.7-2.4) mg/dl Total Bilirubin (0.2-1.0) mg/dl AST (13-39) U/L ALT (7-52) U/L Alkaline Phosphatase (34-104) U/L Troponin I High Sens (0-20) pg/ml Total Protein (6.0-8.3) gm/dl Albumin (3.4-5.0) gm/dl Globulin (2.5-4.0) gm/dl Albumin/Globulin Ratio (0.9-2) Lipase (11-82) U/L SARS-CoV-2, RNA, NAAT NEGATIVE (NEGATIVE) Blood Type O Positive Antibody Screen NEGATIVE Administered Medications Sodium Chloride (1/2 Nss) 1,000 mls @ 80 mls/hr IV .[id number] ONE Stop: 09/21/21 09:57 Last Admin: 09/20/21 21:48 Dose: 80 mls/hr Documented by: [id number] Discontinued Medications Sodium Chloride (Nss 1000ml) 1,000 mls @ 999 mls/hr IV .[id number] STA Stop: 09/20/21 19:57 Last Infusion: 09/20/21 21:26 Dose: 0 mls/hr Documented by: [id number] Admin: 09/20/21 19:58 Dose: 999 mls/hr Documented by: [id number] Calcium Gluconate () 1,000 mg in 60 mls @ 240 mls/hr IV NOW STA Stop: 09/20/21 21:02 Last Infusion: 09/20/21 21:41 Dose: 0 mls/hr Documented by: [id number] Admin: 09/20/21 21:26 Dose: 240 mls/hr Documented by: [id number] Imaging Data Radiologist's Impression: Chest X-Ray 09/20/21 18:57 XR chest 1V portable CLINICAL HISTORY: Chest Pain. COMPARISON STUDY: No previous studies for comparison. TECHNIQUE: 1 view of the chest FINDINGS: Single frontal view of the chest demonstrates the cardiomediastinal silhouette to be within normal limits. The lungs are clear of alveolar opacities. There is no evidence for pleural effusion. There is no evidence for vascular congestion. There is no acute osseous pathology. IMPRESSION: 1. No acute cardiopulmonary disease. ACT 112: Negative or not required by law. Electronically signed by: Jim Lee M.D. 09/20/2021 7:39 PM Discharge Plan Visit Data Chief Complaint: Rectal Bleed Stated Complaint: blood stool ED Provider: Adrian Nava Discharge Problem: Acute lower GI bleeding, Anemia, Colonoscopy causing post-procedural bleeding Patient Disposition: Admitted As Inpatient Discharge Instructions Interventions: ED Discharge Assessment Last Done: 09/20/21 22:11 Discharge Problem: Anemia Qualifiers: Anemia type: unspecified type Qualified Code(s): D64.9 - Anemia, unspecified
[2021-09-20 19:29] LABS: INR 1.1 (0.9-1.1); Partial Thromboplastin Ratio 0.9; Prothrombin Time 11.4 Seconds (9.0-12.0)
[2021-09-20 19:34] LABS: Hematocrit (blood only) 36.9 % (42-52); Hemoglobin 12.2 g/dL (14.0-18.0); Mean Corpuscular Hemoglobin 28.8 pg (25-34); Mean Corpuscular Hgb Conc 33.1 g/dL (32-36); Mean Platelet Volume 10.1 fL (7.4-10.4); Platelet Count 221 K/uL (130-400); RDW Coefficient of Variation 13.7 % (11.5-14.5); RDW Standard Deviation 43.7 fL (36.4-46.3); Red Blood Count 4.24 M/uL (4.7-6.1); White Blood Count 10.66 K/uL (4.8-10.8)
--- NOTE | 2021-09-20 19:40 | XRay Report ---
XR chest 1V portable CLINICAL HISTORY: Chest Pain. COMPARISON STUDY: No previous studies for comparison. TECHNIQUE: 1 view of the chest FINDINGS: Single frontal view of the chest demonstrates the cardiomediastinal silhouette to be within normal li mits. The lungs are clear of alveolar opacities. There is no evidence for pleural effusion. There is no evidence for vascular congestion. There is no acute osseous pathology. IMPRESSION: 1. No acute cardiopulmonary disease. ACT 112: Negative or not required by law. Electronically signed by: Jim Lee M.D. 09/20/2021 7:39 PM
[2021-09-20 19:54] LABS: Troponin I High Sensitivity 4.3 pg/ml (0-20)
[2021-09-20 20:10] LABS: Alanine Aminotransferase 12 U/L (7-52); Albumin Globulin Ratio 1.9 (0.9-2); Albumin Level 3.6 gm/dl (3.4-5.0); Alkaline Phosphatase 58 U/L (34-104); Anion Gap 6 (3-11); Aspartate Aminotransferase 10 U/L (13-39); BUN Creatinine Ratio 12.7 (10-20); Bilirubin,Total 0.3 mg/dl (0.2-1.0); Blood Urea Nitrogen 13 mg/dl (6-23); Calcium 8.2 mg/dl (8.5-10.1); Carbon Dioxide 28 mmol/L (21-32); Chloride 109 mmol/L (98-107); Est GFR (African American) 95.5 ml/min; Est GFR (Non-African American) 82.4 ml/min; Globulin 1.9 gm/dl (2.5-4.0); Glucose 94 mg/dl (70-99(Fasting)); Lipase 33 U/L (11-82); Potassium 3.6 mmol/L (3.5-5.1); Sodium 143 mmol/L (136-145); Total Protein 5.5 gm/dl (6.0-8.3)
[2021-09-20 20:13] LABS: Basophils # (auto) 0.04 K/uL (0-0.2); Basophils % (auto) 0.4 %; Echinocytes 1+; Eosinophils # (auto) 0.21 K/uL (0-0.5); Immature Granulocytes # (auto) 0.02 K/uL (0.00-0.02); Immature Granulocytes % (auto) 0.2 %; Lymphocytes # (auto) 2.37 K/uL (1.2-3.4); Lymphocytes % (auto) 22.2 %; Monocytes # (auto) 0.68 K/uL (0.11-0.59); Monocytes % (auto) 6.4 %; Neutrophils # (auto) 7.34 K/uL (1.4-6.5); Neutrophils % (auto) 68.8 %
[2021-09-20] MEDS ORDERED: CALCIUM GLUCONATE 1,000 MG/60 ML BAG IV STA (20:48)
[2021-09-20] MEDS ORDERED: SODIUM CHLORIDE 0.45 % 1,000 ML IV ONE (21:28)
--- NOTE | 2021-09-20 21:29 | History & Physical Report ---
Date of Service September 20, 2021 Assessment & Plan (1) Syncope: Plan: Likely secondary to orthostasis with note of low BP at home secondary to post colonoscopic polypectomy lower GI bleed Rule out cardiac dysfunction Anemia secondary to above Hyperlipidemia on statin Rx Medical telemetry Check orthostatic vitals IVF Clear liquid diet for now GI consult Re: Lower GI bleed Follow H&H, transfuse PRBC if hemoglobin less than 7 and or for symptomatic anemia TTE RE syncope DVT prophylaxis. SCDs Re: GI bleed Full code Patient requests for his to updated of plan of care. Ms. Emani Allen, contact #[phone]. Text document was generated using wmbly voice recognition software. It may contain grammatical or spelling errors. Kindly contact undersigned for clarification of any documentation item in question. History of Present Illness Chief Complaint: Lower GI bleed post colonoscopy Primary Care Provider: Demond Loyola MD History obtained from patient and records. Medical history significant for hyperlipidemia, mood disorder, colonic polyps, past tobacco abuse. Last confinement July 2021 toe discoloration. Outpatient rheumatologic work-up negative. Patient to go for HALLIE with vasospasm studies outpatient. Patient underwent outpatient colonoscopy yesterday at [facility] for abnormal CT abdomen pelvis findings of perirectal abscess/phlegmon during recent confinement. Multiple colonic polyps found and hypertrophied anal papillae noted on colonoscopy. 8 polyps were resected by snare and retrieved. At home, bloody stools gushing out as per patient without abdominal pain. Patient had 2 unwitnessed syncopal events preceded by lightheadedness. No chest pain, no SOB. Blood pressure noted to be low upon arrival of EMS. Patient brought to the ER for evaluation. Medical History as above Surgical History : None Family History : COPD Personal/Social history : Past tobacco abuse, occasional EtOH intake, retired contractor Allergies Allergy/AdvReac Type Severity Reaction Status Date / Time No Known Allergies Allergy Verified 09/20/21 20:18 Home Medications Medication Instructions Recorded Confirmed Type atorvastatin 40 mg tablet 40 mg PO HS 07/31/21 09/20/21 History celecoxib 200 mg capsule 200 mg PO HS 09/20/21 09/20/21 History Past Med/Surg History Medical History Acute foot pain Foot pain Hyperglycemia Social History Smoking Status: Former smoker Second Hand Exposure: No; Hx Alcohol Use: Yes Hx Substance Use: No Preferred Language: Vietnamese Communication Ability: Effective Theology Professor Required: No Beliefs That Will Affect Care: None Current Living Situation: Spouse Other Information That Helps Us Care for You: No Feels Safe at Home: Yes Safety Concerns: Feels Safe At This Time Assistive Devices: None Review of Systems Review of Systems: As per HPI, all other systems reviewed and negative Physical Exam Physical Exam: GENERAL: Comfortable, pleasant, no respiratory distress SKIN: Pallor , warm HEENT: Pale palpebral conjunctivae, no ptosis, dry buccal mucosa NECK : Supple, no tenderness CHEST : CTA, no tenderness HEART : RRR, no obvious murmurs ABDOMEN: Some distention, nontender EXTREMITIES : No LE swelling/tenderness, no other conspicuous deformities noted NEUROLOGIC : Coherent, no facial asymmetry, no other gross focality Results & Data Results & Data ([facility]) Vital Signs (Past 12 Hours) Vital Signs Pulse Pulse Resp BP BP Pulse Ox 09/20/21 19:16 73 16 112/75 95 09/20/21 19:07 75 16 112/76 95 Laboratory Results Laboratory Results WBC 10.66 K/uL (4.8-10.8) 09/20/21 19:04 RBC 4.24 M/uL (4.7-6.1) L 09/20/21 19:04 Hgb 12.2 g/dL (14.0-18.0) L 09/20/21 19:04 Hct 36.9 % (42-52) L 09/20/21 19:04 MCV 87.0 fL (80-100) 09/20/21 19:04 MCH 28.8 pg (25-34) 09/20/21 19:04 MCHC 33.1 g/dL (32-36) 09/20/21 19:04 RDW Std Deviation 43.7 fL (36.4-46.3) 09/20/21 19:04 RDW Coeff of Deniz 13.7 % (11.5-14.5) 09/20/21 19:04 Plt Count 221 K/uL (130-400) 09/20/21 19:04 MPV 10.1 fL (7.4-10.4) 09/20/21 19:04 Immature Gran % (Auto) 0.2 % 09/20/21 19:04 Neut % (Auto) 68.8 % 09/20/21 19:04 Lymph % (Auto) 22.2 % 09/20/21 19:04 Floyd % (Auto) 6.4 % 09/20/21 19:04 Eos % (Auto) 2.0 % 09/20/21 19:04 Baso % (Auto) 0.4 % 09/20/21 19:04 Neut # (Auto) 7.34 K/uL (1.4-6.5) H 09/20/21 19:04 Lymph # (Auto) 2.37 K/uL (1.2-3.4) 09/20/21 19:04 Floyd # (Auto) 0.68 K/uL (0.11-0.59) H 09/20/21 19:04 Eos # (Auto) 0.21 K/uL (0-0.5) 09/20/21 19:04 Baso # (Auto) 0.04 K/uL (0-0.2) 09/20/21 19:04 Immature Gran # (Auto) 0.02 K/uL (0.00-0.02) 09/20/21 19:04 Echinocytes 1+ 09/20/21 19:04 PT 11.4 Seconds (9.0-12.0) 09/20/21 19:04 INR 1.1 (0.9-1.1) 09/20/21 19:04 APTT 24.0 Seconds (21.0-31.0) 09/20/21 19:04 PTT Ratio 0.9 09/20/21 19:04 Sodium 143 mmol/L (136-145) 09/20/21 19:04 Potassium 3.6 mmol/L (3.5-5.1) 09/20/21 19:04 Chloride 109 mmol/L (98-107) H 09/20/21 19:04 Carbon Dioxide 28 mmol/L (21-32) 09/20/21 19:04 Anion Gap 6 (3-11) 09/20/21 19:04 BUN 13 mg/dl (6-23) 09/20/21 19:04 Creatinine 1.02 mg/dl (0.6-1.4) 09/20/21 19:04 Est Cr Clr Drug Dosing Not Reportable 09/20/21 19:04 Est GFR ( Amer) 95.5 ml/min 09/20/21 19:04 Est GFR (Non-Af Amer) 82.4 ml/min 09/20/21 19:04 BUN/Creatinine Ratio 12.7 (10-20) 09/20/21 19:04 Glucose 94 mg/dl (70-99(Fasting)) 09/20/21 19:04 Calcium 8.2 mg/dl (8.5-10.1) L 09/20/21 19:04 Magnesium 2.0 mg/dl (1.7-2.4) 09/20/21 19:04 Total Bilirubin 0.3 mg/dl (0.2-1.0) 09/20/21 19:04 AST 10 U/L (13-39) L 09/20/21 19:04 ALT 12 U/L (7-52) 09/20/21 19:04 Alkaline Phosphatase 58 U/L (34-104) 09/20/21 19:04 Troponin I High Sens 4.3 pg/ml (0-20) 09/20/21 19:04 Total Protein 5.5 gm/dl (6.0-8.3) L 09/20/21 19:04 Albumin 3.6 gm/dl (3.4-5.0) 09/20/21 19:04 Globulin 1.9 gm/dl (2.5-4.0) L 09/20/21 19:04 Albumin/Globulin Ratio 1.9 (0.9-2) 09/20/21 19:04 Lipase 33 U/L (11-82) 09/20/21 19:04 SARS-CoV-2, RNA, NAAT NEGATIVE (NEGATIVE) 09/20/21 19:19 Blood Type O Positive 09/20/21 19:53 Antibody Screen NEGATIVE 09/20/21 19:53 Impressions Chest X-Ray 09/20/21 18:57 XR chest 1V portable CLINICAL HISTORY: Chest Pain. COMPARISON STUDY: No previous studies for comparison. TECHNIQUE: 1 view of the chest FINDINGS: Single frontal view of the chest demonstrates the cardiomediastinal silhouette to be within normal limits. The lungs are clear of alveolar opacities. There is no evidence for pleural effusion. There is no evidence for vascular congestion. There is no acute osseous pathology. IMPRESSION: 1. No acute cardiopulmonary disease. ACT 112: Negative or not required by law. Electronically signed by: Jim Lee M.D. 09/20/2021 7:39 PM Diagnostic Findings EKG as per my interpretation: Rate 75, NSR, normal axis, no ischemia Code Status & VTE Plan VTE Prophylaxis Plan VTE Prophylaxis will be ordered: Yes
[2021-09-20] MEDS ORDERED: PROMETHAZINE HCL 12.5 MG in SODIUM CHLORIDE 0.9% 50 ML IV PRN (22:39)
[2021-09-20] MEDS ORDERED: oxyCODONE HCL IR 5 MG TAB (IMMEDIATE RELEASE) PO PRN (22:39)
[2021-09-20] MEDS ORDERED: ACETAMINOPHEN 325 MG TAB PO PRN (22:39)
[2021-09-20] MEDS ORDERED: LORazepam 2 MG/1 ML VIAL IV PRN (22:39)
[2021-09-21 00:47] LABS: Hematocrit (blood only) 32.1 % (42-52); Hemoglobin 10.5 g/dL (14.0-18.0)
[2021-09-21 06:13] LABS: Basophils # (auto) 0.02 K/uL (0-0.2); Basophils % (auto) 0.3 %; Eosinophils # (auto) 0.17 K/uL (0-0.5); Eosinophils % (auto) 2.2 %; Hematocrit (blood only) 32.3 % (42-52); Hemoglobin 10.6 g/dL (14.0-18.0); Immature Granulocytes # (auto) 0.01 K/uL (0.00-0.02); Immature Granulocytes % (auto) 0.1 %; Lymphocytes # (auto) 1.95 K/uL (1.2-3.4); Lymphocytes % (auto) 25.3 %; Mean Corpuscular Hgb Conc 32.8 g/dL (32-36); Mean Corpuscular Volume 88.3 fL (80-100); Mean Platelet Volume 9.9 fL (7.4-10.4); Monocytes # (auto) 0.74 K/uL (0.11-0.59); Monocytes % (auto) 9.6 %; Neutrophils # (auto) 4.82 K/uL (1.4-6.5); Neutrophils % (auto) 62.5 %; Platelet Count 194 K/uL (130-400); RDW Coefficient of Variation 13.8 % (11.5-14.5); RDW Standard Deviation 44.8 fL (36.4-46.3); Red Blood Count 3.66 M/uL (4.7-6.1); White Blood Count 7.71 K/uL (4.8-10.8)
[2021-09-21 06:37] LABS: Calcium 8.2 mg/dl (8.5-10.1); Creatinine Clr Calc Pharmacy 105.1 ml/min; Est GFR (African American) 115.4 ml/min; Est GFR (Non-African American) 99.6 ml/min; Potassium 3.6 mmol/L (3.5-5.1)
--- NOTE | 2021-09-21 10:22 | Gastrointestinal Consultation ---
Date of Consultation September 21, 2021 Assessment & Plan (1) Acute lower GI bleeding: (2) Anemia: (3) Syncope: Patient is a 56 years old male admitted yesterday for anemia, syncope, rectal bleeding, following colonoscopy with multiple polyps removal. Suspect it was polypectomy bleeding. No rectal bleeding x 15 hours by the time of my examination. Abd exaam benign - CL diet - Continue to monitor for further s/s of GI bleeding - Monitor blood ct - IVF support - If no more rectal bleeding by this afternoon, anticipate DC home Supervising Physician Co-Signing Physician Notes I have personally seen and examined the patient with ANDREI Estrada. Her note reflects my exam and findings. I agree with her impression and plan. Self limited post polypectomy bleed. Patient will follow up with regular Clinical Trial Assistant. Pee Webster M.D. History of Present Illness Reason for Consultation: Lower GI bleed Requesting Physician: Dr. Santos Bhatia Attending Physician: Dr. Pee Webster History of Present Illness Patient is a 56 years old male who presented yesterday with complaints of rectal bleeding. He had underwent a colonoscopy at [facility] for symptoms of diarrhea, also incidental finding in recent CT of a perirectal abscess. He had multiple colonic polyps, had a total of 8 of them removed via hot and cold snare. There were other remaining colonic polyps which were not removed due to lack of procedure time anesthesia. Patient went home from the colonoscopy procedure, and started to have abdominal cramping, passing bright red blood per rectum 6-7 times last evening. He also recalled feeling lightheaded and had a syncopal episode. Last event of rectal bleeding was around 6 PM last night. He was taken to the ER by EMS. Noted to be anemic with a hemoglobin and hematocrit of 10/32. Platelet 194, INR 1.4. Chemistry panel unremarkable. He has not had any more bowel movements or rectal bleeding since 6 PM. Currently feels well, no longer having any lightheadedness, dizziness, no chest pain or shortness of breath, abdominal pain or cramping. Tolerating clear liquids diet without nausea or vomiting. Denies aspirin or anticoagulation. Denies any abdominal surgeries. Family history pertinent for father with multiple metastatic cancer, unknown origin. Denies any history of IBD in the family. Allergies Allergy/AdvReac Type Severity Reaction Status Date / Time No Known Allergies Allergy Verified 09/20/21 20:18 Home Medications Medication Instructions Recorded Confirmed Type atorvastatin 40 mg tablet 40 mg PO HS 07/31/21 09/20/21 History celecoxib 200 mg capsule 200 mg PO HS 09/20/21 09/20/21 History Patient History Medical History Acute foot pain Foot pain Hyperglycemia Social History Smoking Status: Former smoker Second Hand Exposure: No; Hx Alcohol Use: Yes Hx Substance Use: No Preferred Language: Frisian Communication Ability: Effective Price Economist Required: No Beliefs That Will Affect Care: None Current Living Situation: Spouse Other Information That Helps Us Care for You: No Feels Safe at Home: Yes Safety Concerns: Feels Safe At This Time Assistive Devices: None Review of Systems Review of Systems: All systems reviewed & are unremarkable except as noted in HPI & below Physical Exam Constitutional: WD/WN, vitals as above well groomed, cooperative and comfortable Eyes: PERRL, conjunctivae normal, anicteric sclerae ENMT: external ear and nose normal, oropharynx normal Respiratory: normal respiratory effort, lungs clear to auscultation Cardiovascular: RRR, no murmur, no edema Gastrointestinal (Abdomen): normal bowel sounds, soft, nontender, no hepatosplenomegaly Skin: no rashes, warm and dry no jaundice Psychiatric: A+Ox3, euthymic affect Lymphatic: no lymphedema Results & Data ([facility]) Vital Signs (Past 12 Hours) Vital Signs Temp Pulse Pulse Resp BP Pulse Ox 09/21/21 08:07 70 09/21/21 07:37 36.7 C 75 12 117/75 98 09/21/21 04:07 36.9 C 69 18 113/66 97 09/20/21 23:40 36.8 C 78 16 113/73 97 09/20/21 22:36 71 09/20/21 22:30 36.9 C 72 16 121/76 99 (1) Anemia Anemia type: unspecified type Qualified Code(s): D64.9 - Anemia, unspecified
[2021-09-21 12:24] LABS: Hematocrit (blood only) 33.6 % (42-52); Hemoglobin 11.1 g/dL (14.0-18.0)
--- NOTE | 2021-09-21 13:23 | Hospitalist Progress Note ---
Date of Service September 21, 2021 Assessment & Plan (1) Syncope: Plan: per Dr. Ward's notes (previous hospitalist) with addendum: Likely secondary to orthostasis with note of low BP at home secondary to post colonoscopic polypectomy lower GI bleed given IV fluids Hg monitored no recurrence of syncope no recurrence of hematochezia Hg stable 10-11 x 3 since last evening evaluated by GI- no procedures recommended at this time if no bleeding, d/c this afternoon as per GI will advise no NSAIDs post discharge Anemia secondary to above Hg stable 10-11 Hyperlipidemia on statin Rx DVT prophylaxis. SCDs Re: GI bleed Full code Patient requests for his to updated of plan of care. Ms. Emani Allen, contact #[phone]. Admission and Anticipated Discharge Date Admission Date: September 20, 2021 Subjective ff up for hematochezia, etc seen resting in bed, comfortable in good spirits states he feels much better since admission no recurrence of hematochezia, no melena, abdominal pain ,nausea/vomiting no chest pain, dyspnea, palpitations, dizziness no other symptoms Review of Systems Review of Systems: all noted and negative except for above Physical Exam Physical Exam: General- oriented x 3, not in distress, speaks in sentences with no effort or accessory muscle use Head- atraumatic Eyes- PERRL, EOMI, anicteric ENT- oropharynx clear Neck- supple, no JVD, no adenopathy, no thyromegaly; carotids +2/2, no bruits appreciated Lungs- clear to auscultation bilaterally, no rales/wheezes Heart- normal rate, regular rhythm; no murmur, no gallop, no rub appreciated Abdomen- normal bowel sounds, nondistended, soft, nontender, no masses or hepatosplenomegaly Extremities- no pretibial edema, no calf tenderness; peripheral pulses intact Neuro- alert, oriented x 3; CN 2-12 grossly intact; motor 5/5 bilaterally;sensation 100% on all extremities; no other gross focal neurologic deficits Skin- warm & dry Results & Data Results & Data ([facility]) Vital Signs (Past 12 Hours) Vital Signs Temp Pulse Pulse Resp BP Pulse Ox 09/21/21 11:05 37 C 73 14 132/79 96 09/21/21 08:07 70 09/21/21 07:37 36.7 C 75 12 117/75 98 09/21/21 04:07 36.9 C 69 18 113/66 97 all noted and reviewed including below
--- NOTE | 2021-09-21 13:31 | Electrocardiogram Report ---
Test Reason : Blood Pressure : / mmHG Vent. Rate : 077 BPM Atrial Rate : 077 BPM P-R Int : 142 ms QRS Dur : 070 ms QT Int : 386 ms P-R-T Axes : 030 007 028 degrees QTc Int : 436 ms Poor data quality, interpretation may be adversely affected Normal sinus rhythm Normal ECG No previous ECGs available Confirmed by Adrian Krueger ([id number]) on 09/21/2021 1:31:14 PM Referred By: REFERRED SELF Confirmed By:Adrian Krueger
--- NOTE | 2021-09-21 15:44 | Discharge Summary ---
Date of Service September 21, 2021 Admission HPI Per Admitting Provider History obtained from patient and records. Medical history significant for hyperlipidemia, mood disorder, colonic polyps, past tobacco abuse. Last confinement July 2021 toe discoloration. Outpatient rheumatologic work-up negative. Patient to go for HALLIE with vasospasm studies outpatient. Patient underwent outpatient colonoscopy yesterday at [facility] for abnormal CT abdomen pelvis findings of perirectal abscess/phlegmon during recent confinement. Multiple colonic polyps found and hypertrophied anal papillae noted on colonoscopy. 8 polyps were resected by snare and retrieved. At home, bloody stools gushing out as per patient without abdominal pain. Patient had 2 unwitnessed syncopal events preceded by lightheadedness. No chest pain, no SOB. Blood pressure noted to be low upon arrival of EMS. Patient brought to the ER for evaluation. Medical History as above Surgical History : None Family History : COPD Personal/Social history : Past tobacco abuse, occasional EtOH intake, retired contractor Admission Exam Per Admitting Provider GENERAL: Comfortable, pleasant, no respiratory distress SKIN: Pallor , warm HEENT: Pale palpebral conjunctivae, no ptosis, dry buccal mucosa NECK : Supple, no tenderness CHEST : CTA, no tenderness HEART : RRR, no obvious murmurs ABDOMEN: Some distention, nontender EXTREMITIES : No LE swelling/tenderness, no other conspicuous deformities noted NEUROLOGIC : Coherent, no facial asymmetry, no other gross focality Principal Diagnosis HEMATOCHEZIA SYNCOPE S/P POLYPECTOMY Discharge Exam General- oriented x 3, not in distress, speaks in sentences with no effort or accessory muscle use Head- atraumatic Eyes- PERRL, EOMI, anicteric ENT- oropharynx clear Neck- supple, no JVD, no adenopathy, no thyromegaly; carotids +2/2, no bruits appreciated Lungs- clear to auscultation bilaterally, no rales/wheezes Heart- normal rate, regular rhythm; no murmur, no gallop, no rub appreciated Abdomen- normal bowel sounds, nondistended, soft, nontender, no masses or hepatosplenomegaly Extremities- no pretibial edema, no calf tenderness; peripheral pulses intact Neuro- alert, oriented x 3; CN 2-12 grossly intact; motor 5/5 bilaterally;sensation 100% on all extremities; no other gross focal neurologic deficits Skin- warm & dry Discharge Data Allergies Allergy/AdvReac Type Severity Reaction Status Date / Time No Known Allergies Allergy Verified 09/20/21 20:18 Consultations 09/20/21 20:02 ED Decision to Admit Stat 09/20/21 22:39 Consult Gastroenterology Routine Procedures Performed CXR: FINDINGS: Single frontal view of the chest demonstrates the cardiomediastinal silhouette to be within normal limits. The lungs are clear of alveolar opacities. There is no evidence for pleural effusion. There is no evidence for vascular congestion. There is no acute osseous pathology. IMPRESSION: 1. No acute cardiopulmonary disease. ACT 112: Negative or not required by law. Electronically signed by: Jim Lee M.D. 09/20/2021 7:39 PM Hospital Course (1) Syncope: per Dr. Ward's notes (previous hospitalist) with addendum: Syncope Likely secondary to orthostasis with note of low BP at home secondary to post colonoscopic polypectomy lower GI bleed patient admits to taking Celebrex at , taken the night before Colonoscopy with Polypectomy given IV fluids Hg monitored no recurrence of syncope no recurrence of hematochezia Hg stable 10-11 x 3 since last evening evaluated by GI- no procedures recommended at this time no recurrence of bleeding, d/c this afternoon as per GI NO NSAIDs post discharge until cleared by GI ff up with GI in [place] in 1-2 weeks Anemia secondary to above Hg stable 10-11 Hyperlipidemia on statin Rx plan of care discussed with patient and his in detail and at length all questions answered he is understanding, agreeable, comfortable with the plan of care Total Time Total Time Spent Total Time Spent (In Minutes): >30 minutes Discharge Plan Discharge Items Patient Disposition: Home - Self-Care Reason For Visit: SYNCOPE, LGIB Discharge Diagnosis: SYNCOPE HEMATOCHEZIA- LOWER GASTROINTESTINAL BLEED S/P POLYPECTOMY Activity: As commented below Activity Comment: NO HEAVY EXERTION, INCREASE ACTIVITY GRADUALLY TOLERATED Lifting: Wait until after follow-up appointment Exercise/Sports: Wait until after follow-up appointment Driving/Machine Use: NO DRIVING UNTIL RE-EVALUATED AND ALLOWED BY PRIMARY CARE PHYSICIAN Non-emergency contact: Primary Care Provider Call non-emergency contact if: you have any medication questions, your symptoms worsen, your pain is not controlled, your pain is worsening, your pain is unusual for you, your pain is concerning for you and you have a fever Follow-up/Referrals: eDmond Loyola MD [Primary Care Provider] - Diet: Low Fiber Addtl Attending Provider Instructions: SOFT, LOW FIBER DIET FOR AT LEAST 1 WEEK. NO NSAIDS INCLUDING CELEBREX, ASPIRIN, IBUPROFEN, NAPROXEN, ETC UNTIL OK WITH MEDICAL OFFICE TECHNOLOGIST. DRINK PLENTY OF WATER- AT LEAST 8 GLASSES PER DAY. PLEASE CALL YOUR PRIMARY CARE PHYSICIAN OR RETURN TO THE ER IF WITH WORSENING OF SYMPTOMS, INCLUDING ABDOMINAL PAIN, FEVER/CHILLS, RECURRENCE OF BLOOD OR BLACK STOOL, WEAKNESS, DIZZINESS. FOLLOW UP WITH PRIMARY CARE PHYSICIAN DR. NAGY AT [facility] ON Sunday09/23/21, AT 10:00AM. FOLLOW UP WITH MEDICAL OFFICE TECHNOLOGIST IN [facility] IN 1-2 WEEKS. Pending Studies at Discharge: Yes Studies:: REPEAT BLOODWORK - COMPLETE BLOOD COUNT ON FOLLOW UP WITH PRIMARY CARE PHYSICIAN THIS SUNDAY. Stand-Alone Forms: My [facility] [employer], Smoking Cessation Medications and DC Order Prescriptions: Continued atorvastatin 40 mg tablet 40 mg PO HS RF: 0 Discontinued celecoxib 200 mg capsule 200 mg PO HS RF: 0 Discharge Orders: Discharge Order (Routine); Ordered 09/21/21 Ordered By: Santos Bhatia Admission Data Admit Date/Time: 09/20/21 21:25 Attending Provider: Santos Bhatia Admit Provider: Santos Bhatia Primary Care Provider: Demond Loyola Other Providers: Jose Enrique Ward ; Anthony Valladares ; Letitia Juan ; Blake Contreras ; Nyasia Gracia ; Romeo Horowitz ; Theo Sarabia ; Manfred Miranda ; Pee Webster ; Whitney Laureano ; Vivian Ramires ; Shu Gallagher ; Yarelis Collier ; Emiliano Cortes Other Interventions: Discharge Summary Assessment (RN) Last Done: 09/21/21 15:37
[2021-09-21] MEDS ORDERED: ATORVASTATIN 40 MG TAB PO SCH (21:00)
== END 2021-09-21 16:11 | disposition home or self-care (01) | DRG 920 ==
LOC: ED 18:51 → 2N 21:25